=== PATIENT | male | born 1985 | race Two or more races ===

== ENCOUNTER 2017-03-13 13:24 | Emergency (ER) | payer OTHER ==
[2017-03-13] MEDS ORDERED: HYDROCODONE/ACETAMINOPHEN 5/325MG TABLET ONE (14:01)
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
--- NOTE | 2017-03-13 14:20 | RAD ---
HAND-RIGHT 3 VIEWS HISTORY: Hand injury. COMPARISONS: None. FINDINGS: 3 views of the right hand demonstrate normal bony mineralization. There is a healed fracture deformity of the mid right fifth metacarpal. No acute fracture is visualized. The alignment is appropriate. The joint spaces are well-maintained. The soft tissue structures are unremarkable. IMPRESSION: 1. A healed fracture deformity of the mid right fifth metacarpal. No definite acute fracture is seen.
== END 2017-03-13 14:37 | disposition home or self-care (01) ==
LOC: ED 13:24
DX: S00.03XA Contusion of scalp, initial encounter (principal); W22.8XXA Striking against or struck by other objects, initial encounter; Y92.69 Other specified industrial and construction area as the place of occurrence of the external cause; Y99.0 Civilian activity done for income or pay
CPT/HCPCS: 73130; 70450; 99283 ×2; A9270